=== PATIENT | female | born 1945 | race African-American/Black ===

== ENCOUNTER 2016-12-10 00:11 | Emergency (ER) | payer OTHER ==
[~2016-12-10] VITALS: Ht 175.3 cm; Wt 64.0 kg
[~2016-12-10 00:11] MED LIST: ATOR10TA15 PO; BLOOD GLUCOSE T1 TES; CHLO25TA2 PO; CLON0.1T PO; GLIP5TAB8 PO; LABE100T2 PO; METF1000 PO; MOBI15TA PO; MUPI2%T TOPICAL; RAMI2.5C PO; ZITHTAB PO
[2016-12-10 00:14] VITALS: BP 158/97; PULSE 118; RESP 16; TEMP 97.5; O2SAT 100
[2016-12-10] MEDS ORDERED: SODIUM CHLOR 0.9% 1000 ML INJ 1,000 ML IV SCH (02:06)
[2016-12-10 02:09] VITALS: BP 164/92; PULSE 95; RESP 20; O2SAT 99
--- NOTE | 2016-12-10 02:10 | PD ---
HPI Chief Complaint: Abdominal Pain Time Seen by Provider: 01:56 Travel History International Travel<30 days: No Contact w/Intl Traveler<30days: No Traveled to known affect area: No History of Present Illness HPI The patient is a 71-year-old after Citizen Of The [place] female who presents emergency department for abdominal pain. The patient states she developed abdominal pain approximate 9 PM earlier tonight. The abdominal pain is located in left lower quadrant and suprapubic region, nonradiating, and associated with nausea without any vomiting. The patient has multiple episodes of loose stool without any visible blood. The patient states she went to her grandson's graduation earlier today and ate [place] fried chicken and Krystals. The patient does have a history of previous total hysterectomy and appendectomy, denies any known history of diverticulitis, colitis, or pancreatitis. Symptoms are moderate, possibly exacerbated after eating fried food, and there are no current alleviating factors. She denies any associated dysuria, frequency, or urgency. The patient's primary physician is Dr. Solis. COUNTS INCLUDE 234 BEDS AT THE [facility] Past Medical History Cardiovascular Problems: Yes (HTN) High Cholesterol: Yes Diabetes: Yes Diminished Hearing: No GERD: Yes Hypertension: Yes Past Surgical History Appendectomy: Yes Hysterectomy: Yes Other Surgery: Yes Social History Alcohol Use: No Tobacco Use: Yes (4 CIGS PER DAY) Substance Use: No Allergies-Medications (Allergen,Severity, Reaction): Coded Allergies: Iodine (Verified Allergy, Severe, Rash, 12/10/16) Penicillin (Verified Allergy, Severe, Rash, 12/10/16) Reported Meds & Prescriptions Reported Meds & Active Scripts Active Ramipril 2.5 Mg Cap 2.5 Mg PO DAILY Labetalol (Labetalol HCl) 100 Mg Tab 100 Mg PO BID Glipizide 5 Mg Tab 5 Mg PO DAILY Take 30 minutes before a meal Blood Glucose Test Strips 1 Adilia Adilia 1 Box .ROUTE BID emilee breeze II test disk Chlorthalidone 25 Mg Tab 25 Mg PO DAILY Reported Clonidine (Clonidine HCl) 0.1 Mg Tab 0.1 Mg PO BID Atorvastatin (Atorvastatin Calcium) 10 Mg Tab 10 Mg PO HS Metformin (Metformin HCl) 1,000 Mg Tab 1,000 Mg PO BIDPC With meals Review of Systems Except as stated in HPI: all other systems reviewed are Neg General / Constitutional: No: Fever Cardiovascular: No: Chest Pain or Discomfort Respiratory: No: Shortness of Breath Gastrointestinal: Positive: Nausea, Diarrhea, Abdominal Pain, Changes in Bowel Habits, No: Vomiting Genitourinary: No: Urgency, Frequency, Dysuria Physical Exam Narrative GENERAL: Awake, alert, very pleasant 71-year-old female who appears her stated age and is in no acute respiratory distress. SKIN: Focused skin assessment warm/dry. HEAD: Atraumatic. Normocephalic. EYES: Pupils equal and round. No scleral icterus. No injection or drainage. ENT: No nasal bleeding or discharge. Mucous membranes pink and moist. NECK: Trachea midline. No JVD. CARDIOVASCULAR: Regular rate and rhythm. No murmur appreciated. RESPIRATORY: No accessory muscle use. Clear to auscultation. Breath sounds equal bilaterally. GASTROINTESTINAL: Abdomen soft, tender palpation left lower quadrant and suprapubic region. No rebound tenderness, guarding, or rigidity. Well-healed midline abdominal incisional scar. MUSCULOSKELETAL: No obvious deformities. No clubbing. No cyanosis. No edema. NEUROLOGICAL: Awake and alert. No obvious cranial nerve deficits. Motor grossly within normal limits. Normal speech. PSYCHIATRIC: Appropriate mood and affect; insight and judgment normal. Data Data Last Documented VS Vital Signs Date Time Temp Pulse Resp B/P Pulse Ox O2 Delivery O2 Flow Rate FiO2 12/10/16 02:45 86 20 155/92 98 12/10/16 02:09 Room Air 12/10/16 00:14 97.5 Orders Complete Blood Count With Diff (12/10/16 02:06) Comprehensive Metabolic Panel (12/10/16 02:06) Lipase (12/10/16 02:06) Lactic Acid (12/10/16 02:06) Urinalysis - C+S If Indicated (12/10/16 02:06) Ct Abd/Pel W/O Iv Contrast (12/10/16 02:06) Iv Access Insert/Monitor (12/10/16 02:06) Ecg Monitoring (12/10/16 02:06) Oximetry (12/10/16 02:06) Morphine Inj (Morphine Inj) (12/10/16 02:15) Ondansetron Inj (Zofran Inj) (12/10/16 02:15) Sodium Chlor 0.9% 1000 Ml Inj (Ns 1000 M (12/10/16 02:06) Sodium Chloride 0.9% Flush (Ns Flush) (12/10/16 02:15) Labs Laboratory Tests Test 12/10/16 12/10/16 12/10/16 02:00 02:20 02:30 White Blood Count 6.5 TH/MM3 Red Blood Count 4.61 MIL/MM3 Hemoglobin 13.0 GM/DL Hematocrit 40.9 % Mean Corpuscular Volume 88.7 FL Mean Corpuscular Hemoglobin 28.2 PG Mean Corpuscular Hemoglobin 31.8 % Concent Red Cell Distribution Width 15.1 % Platelet Count 155 TH/MM3 Mean Platelet Volume 8.8 FL Neutrophils (%) (Auto) 72.2 % Lymphocytes (%) (Auto) 21.1 % Monocytes (%) (Auto) 5.0 % Eosinophils (%) (Auto) 0.9 % Basophils (%) (Auto) 0.8 % Neutrophils # (Auto) 4.7 TH/MM3 Lymphocytes # (Auto) 1.4 TH/MM3 Monocytes # (Auto) 0.3 TH/MM3 Eosinophils # (Auto) 0.1 TH/MM3 Basophils # (Auto) 0.1 TH/MM3 CBC Comment DIFF FINAL Differential Comment Sodium Level 142 MEQ/L Potassium Level 3.8 MEQ/L Chloride Level 104 MEQ/L Carbon Dioxide Level 28.9 MEQ/L Anion Gap 9 MEQ/L Blood Urea Nitrogen 19 MG/DL Creatinine 1.23 MG/DL Estimat Glomerular Filtration 52 ML/MIN Rate Random Glucose 200 MG/DL Calcium Level 9.5 MG/DL Total Bilirubin 0.3 MG/DL Aspartate Amino Transf 17 U/L (AST/SGOT) Alanine Aminotransferase 12 U/L (ALT/SGPT) Alkaline Phosphatase 79 U/L Total Protein 6.9 GM/DL Albumin 3.7 GM/DL Lipase 228 U/L Lactic Acid Level 2.8 mmol/L Urine Color YELLOW Urine Turbidity CLEAR Urine pH 5.0 Urine Specific [place] 1.017 Urine Protein TRACE mg/dL Urine Glucose (UA) NEG mg/dL Urine Ketones NEG mg/dL Urine Occult Blood NEG Urine Nitrite NEG Urine Bilirubin NEG Urine Urobilinogen LESS THAN 2.0 MG/DL Urine Leukocyte Esterase NEG Urine RBC LESS THAN 1 /hpf Urine WBC 1 /hpf Urine Squamous Epithelial 1 /hpf Cells Urine Bacteria OCC /hpf Urine Hyaline Casts 1 /lpf Urine Mucus FEW /lpf Microscopic Urinalysis Comment CULT NOT INDICATED MDM Medical Decision Making Medical Screen Exam Complete: Yes Emergency Medical Condition: Yes Medical Record Reviewed: Yes Interpretation(s) Laboratory Tests Test 12/10/16 12/10/16 12/10/16 02:00 02:20 02:30 White Blood Count 6.5 TH/MM3 Red Blood Count 4.61 MIL/MM3 Hemoglobin 13.0 GM/DL Hematocrit 40.9 % Mean Corpuscular Volume 88.7 FL Mean Corpuscular Hemoglobin 28.2 PG Mean Corpuscular Hemoglobin 31.8 % Concent Red Cell Distribution Width 15.1 % Platelet Count 155 TH/MM3 Mean Platelet Volume 8.8 FL Neutrophils (%) (Auto) 72.2 % Lymphocytes (%) (Auto) 21.1 % Monocytes (%) (Auto) 5.0 % Eosinophils (%) (Auto) 0.9 % Basophils (%) (Auto) 0.8 % Neutrophils # (Auto) 4.7 TH/MM3 Lymphocytes # (Auto) 1.4 TH/MM3 Monocytes # (Auto) 0.3 TH/MM3 Eosinophils # (Auto) 0.1 TH/MM3 Basophils # (Auto) 0.1 TH/MM3 CBC Comment DIFF FINAL Differential Comment Sodium Level 142 MEQ/L Potassium Level 3.8 MEQ/L Chloride Level 104 MEQ/L Carbon Dioxide Level 28.9 MEQ/L Anion Gap 9 MEQ/L Blood Urea Nitrogen 19 MG/DL Creatinine 1.23 MG/DL Estimat Glomerular Filtration 52 ML/MIN Rate Random Glucose 200 MG/DL Calcium Level 9.5 MG/DL Total Bilirubin 0.3 MG/DL Aspartate Amino Transf 17 U/L (AST/SGOT) Alanine Aminotransferase 12 U/L (ALT/SGPT) Alkaline Phosphatase 79 U/L Total Protein 6.9 GM/DL Albumin 3.7 GM/DL Lipase 228 U/L Lactic Acid Level 2.8 mmol/L Urine Color YELLOW Urine Turbidity CLEAR Urine pH 5.0 Urine Specific [place] 1.017 Urine Protein TRACE mg/dL Urine Glucose (UA) NEG mg/dL Urine Ketones NEG mg/dL Urine Occult Blood NEG Urine Nitrite NEG Urine Bilirubin NEG Urine Urobilinogen LESS THAN 2.0 MG/DL Urine Leukocyte Esterase NEG Urine RBC LESS THAN 1 /hpf Urine WBC 1 /hpf Urine Squamous Epithelial 1 /hpf Cells Urine Bacteria OCC /hpf Urine Hyaline Casts 1 /lpf Urine Mucus FEW /lpf Microscopic Urinalysis Comment CULT NOT INDICATED Last Impressions Abdomen/Pelvis CT 12/10/16 0206 Signed Impressions: Service Date/Time: Saturday, December 10, 2016 02:57 - CONCLUSION: No acute CT findings in the abdomen or pelvis Eliezer Joseph MD Differential Diagnosis Differential diagnosis includes colitis, diverticulitis, nephrolithiasis, pyelonephritis, atypical pancreatitis, biliary colic, cholecystitis, gastritis. Narrative Course IV was established, labs are drawn and sent, and the patient was placed on cardiac telemetry monitoring and continuous pulse oximetry monitoring. The patient was administered morphine, Zofran, and IV fluids. UA was sent to lab. CT of the abdomen and pelvis was obtained. White count is unremarkable. Creatinine is mildly elevated 1.23. Lactic acid was elevated at 2.8. CT of the abdomen and pelvis is negative. The patient's heart rate came down into the 60s, her cramping had improved. Patient has a nonsurgical abdomen, repeat vitals are reassuring. The patient be discharged home on Bentyl and Zofran, she is advised to follow-up with her primary physician and return if symptoms worsen or progress. The patient will be provided a copy of her CT results and lab results at discharge. Diagnosis Primary Impression: Abdominal pain Qualified Code: R10.32 - Left lower quadrant pain Patient Instructions: General Instructions Additional Instructions: Medications as directed. Follow-up with her primary physician. Return if symptoms worsen or progress. Clear liquid diet and advance as tolerated. Please provide the patient a copy of her CT results and lab results at discharge. Med/Other Pt SpecificInfo: Prescription(s) given Scripts Ondansetron Odt (Zofran Odt)4 Mg Tab4 Mg SL Q6HR PRN (Nausea/Vomiting) #7 TAB Ref 0 Prov:Lenin Yan MD 12/10/16 Dicyclomine (Bentyl)10 Mg Cap10 Mg PO QID #20 CAP Ref 0 Prov:Lenin Yan MD 12/10/16 Disposition: 01 DISCHARGE HOME Condition: Stable Lenin Yan MD December 10, 2016 02:10
[2016-12-10] MEDS ORDERED: SODIUM CHLORIDE 0.9% FLUSH 10 ML FLUSH IV FLUSH PRN (02:15)
[2016-12-10] MEDS ORDERED: ONDANSETRON HCL 4 MG/2 ML VIAL IVP ONE (02:15)
[2016-12-10] MEDS ORDERED: MORPHINE SULFATE 4 MG/ML INJ IV PUSH ONE ×2 (02:15→04:15)
[2016-12-10 02:38] LABS: AUTOMATED NEUTROPHIL # 4.7 TH/MM3 (1.8-7.7); BASOPHIL # 0.1 TH/MM3 (0-0.2); BASOPHIL % 0.8 % (0.0-2.0); EOSINOPHIL # 0.1 TH/MM3 (0-0.4); EOSINOPHIL % 0.9 % (0.0-4.0); HEMATOCRIT 40.9 % (35.0-46.0); HEMO FLAGS DIFF FINAL; LYMPH % 21.1 % (9.0-44.0); LYMPHOCYTE # 1.4 TH/MM3 (1.0-4.8); MEAN CELL VOLUME 88.7 FL (80.0-100.0); MEAN CORPUSCULAR HEMOGLOBIN 28.2 PG (27.0-34.0); MEAN CORPUSCULAR HGB CONC 31.8 % (32.0-36.0); NEUT % 72.2 % (16.0-70.0); PLATELET COUNT 155 TH/MM3 (150-450); RED BLOOD COUNT 4.61 MIL/MM3 (4.00-5.30); RED CELL DISTRIBUTION WIDTH 15.1 % (11.6-17.2); WHITE BLOOD COUNT 6.5 TH/MM3 (4.0-11.0)
[2016-12-10 02:45] VITALS: BP 155/92; PULSE 86; RESP 20; O2SAT 98
[2016-12-10 02:47] LABS: BACTERIA, URINE OCC /hpf; BLOOD, URINE NEG (NEG); GLUCOSE,URINE NEG (NEG); HYALINE CAST, URINE 1 /lpf (RARE); KETONE, URINE NEG (NEG); MUCUS URINE FEW /lpf (OCC); NITRITE,URINE NEG (NEG); SQUAMOUS EPITHELIAL CELL URINE 1 /hpf (0-5); URINE COLOR YELLOW (YELLW/STRAW)
[2016-12-10 02:48] LABS: COMMENT (UR) CULT NOT INDICATED; CULTURE IF INDICATED CULT NOT INDICATED
[2016-12-10 02:58] LABS: ALT (GPT) 12 U/L (10-53); ANION GAP 9 MEQ/L (5-15); AST (GOT) 17 U/L (15-37); BICARBONATE 28.9 MEQ/L (21.0-32.0); BLOOD UREA NITROGEN 19 MG/DL (7-18); CHLORIDE 104 MEQ/L (98-107); GLOMERULAR FILTRATION RATE 52 ML/MIN (>89); POTASSIUM 3.8 MEQ/L (3.5-5.1); SODIUM (NA) 142 MEQ/L (136-145)
[2016-12-10 03:00] LABS: ALKALINE PHOSPHATASE 79 U/L (45-117); TOTAL BILIRUBIN ADULT 0.3 MG/DL (0.2-1.0)
--- NOTE | 2016-12-10 03:22 | RADRPT ---
EXAM DATE/TIME: 12/10/2016 02:57 [facility] COMPARISON: CT ABDOMEN & PELVIS W/O CONTRAST, May 12, 2013, 7:44. INDICATIONS : Left lower quadrant pain; possible diverticulitis. ORAL CONTRAST: No oral contrast ingested. RADIATION DOSE: 4.75 CTDIvol (mGy) MEDICAL HISTORY : Hypertension. Diabetes mellitus type 2. Gastroesophageal reflux disease. SURGICAL HISTORY : Appendectomy. Hysterectomy. ENCOUNTER: Initial ACUITY: 1 day PAIN SCALE: 7/10 LOCATION: Left lower quadrant abdomen TECHNIQUE: Volumetric scanning of the abdomen and pelvis was performed. Using automated exposure control and ad justment of the mA and/or kV according to patient size, radiation dose was kept as low as reasonably achievable to obtain optimal diagnostic quality images. FINDINGS: LOWER LUNGS: The visualized lower lungs are clear. LIVER: Homogeneous density without lesion. There is no dilation of the biliary tree. No calcified gallston es. SPLEEN: Normal size without lesion. PANCREAS: Within normal limits. KIDNEYS: Normal in size and shape. There is no mass, stone, or hydronephrosis. ADRENAL GLANDS: Within normal limits. VASCULAR: There is no aortic aneurysm. BOWEL/MESENTERY: Distal colonic diverticula. No definite abnormal dilatation, wall thickening or inflammatory change ABDOMINAL WALL: Within normal limits. RETROPERITONEUM: There is no lymphadenopathy. BLADDER: No wall thickening or mass. REPRODUCTIVE: Uterus surgically absent. No evidence of free fluid or pelvic mass INGUINAL: There is no lymphadenopathy or hernia. MUSCULOSKELETAL: Within normal limits for patient age. CONCLUSION: No acute CT findings in the abdomen or pelvis Eliezer Joseph MD on December 10, 2016 at 3:17 Board Certified Radiologist. This report was verified electronically.
[2016-12-10] MEDS ORDERED: DICY10 PO (03:37)
[2016-12-10] MEDS ORDERED: ZOFR4TAB3 SL (03:37)
[2016-12-10 03:45] VITALS: BP 158/88; PULSE 68; RESP 20; O2SAT 98
[2016-12-10 03:55] VITALS: RESP 16
[2016-12-10] MEDS ORDERED: DICYCLOMINE HCL 20 MG/2 ML VIAL IM ONE (04:15)
[2016-12-24] MEDS ORDERED: ATOR10TA15 PO (16:02)
[2017-01-08] MEDS ORDERED: METF1000 PO (11:10)
[2017-01-08] MEDS ORDERED: CLON0.1T PO (11:10)
== END 2016-12-10 06:40 | disposition home or self-care (01) ==
LOC: NEPC 00:11
DX: R10.32 Left lower quadrant pain (principal)
CPT/HCPCS: 74176; 80053; 81001; 83605; 83690; 85025; 96361; 96372; 96374; 96375; 96376; 99285; J0500; J2270; J2405; J7030